=== PATIENT | female | born 1990 | race Two or more races ===

== ENCOUNTER 2018-05-25 12:45 | Inpatient (IN) | payer OTHER ==
[~2018-05-25] VITALS: Ht 165.1 cm; Wt 3.2 kg
[2018-05-29] MEDS ORDERED: PRENATAL TABLE1 EAC1 PO (22:36)
[2018-06-01] MEDS ORDERED: PREPLUS CA-FE1 EACH PO (09:09)
[2018-06-01] MEDS ORDERED: EC-NAPROSYN375 MG PO (09:09)
== END 2018-06-01 14:05 | DRG 788 ==
LOC: OB/GYN 05-29 21:16 → LDR 05-29 21:16 → OB/GYN 05-30 13:10
PROVIDERS: ADMIT Obstetrics & Gynecology
PROC: 4A1HXCZ Monitoring of Products of Conception, Cardiac Rate, External Approach (ICD-10-PCS; 2018-05-29)
PROC: 4A033R1 Measurement of Arterial Saturation, Peripheral, Percutaneous Approach (ICD-10-PCS; 2018-05-30)
PROC: 10D00Z1 Extraction of Products of Conception, Low, Open Approach (ICD-10-PCS; principal; 2018-05-30 10:30)
DX: O33.8 Maternal care for disproportion of other origin (principal); Z3A.38 38 weeks gestation of pregnancy; Z37.0 Single live birth